=== PATIENT | male | born 1995 | race Two or more races ===

== ENCOUNTER 2022-11-14 11:50 | Outpatient (CLI) | payer OTHER | END 2022-11-14 11:51 | disposition critical access hospital (66) | LOC: EMS 11:50 | DX: R07.9 Chest pain, unspecified (principal); R53.83 Other fatigue | CPT/HCPCS: A0425; A0429 ==

== ENCOUNTER 2022-11-14 12:16 | Emergency (ER) | payer OTHER ==
--- NOTE | 2022-11-14 12:53 | ED Physician Documentation ---
PD HPI CHEST PAIN - Stated complaint Stated Complaint: CHEST DISCOMFORT - Chief complaint Chief Complaint: Cardiac - History obtained from History obtained from: Patient - History of Present Illness Pain level max: 3 Pain level now: 0 Quality: Aching, Sharp Location: Left chest - Additional information Additional information: 27-year-old male presents the emergency department stating that he awoke with left-sided chest pain this morning. He states he feels more tired than usual. He states the pain is in a 1 finger area on the left chest wall. He states that it hurt when it was pushed on earlier today. No fevers. No chills. No cough. No history of acute coronary syndrome. He states that he has a history of "sinus arrhythmia". He states he also has a history of Mobitz type I. No change with exertion, inspiration, cough. No fevers. No recent illnesses. No trauma. He states the pain is gone right now. Described as sharp. Review of Systems Constitutional: denies: Fever, Chills GI: denies: Vomiting, Diarrhea : denies: Dysuria, Frequency, Hesitancy Skin: denies: Rash Musculoskeletal: denies: Neck pain, Back pain PD PAST MEDICAL HISTORY - Past Medical History Past Medical History: No - Past Surgical History Past Surgical History: No - Allergies Allergies/Adverse Reactions: Allergies Allergy/AdvReac Type Severity Reaction Status Date / Time No Known Drug Allergies Allergy Verified 11/14/22 12:37 - Living Situation Living Situation: reports: With family Living Arrangement: reports: At home - Social History Does the pt smoke?: No Does the pt have substance abuse?: No - Family History Family history: reports: Non contributory PD ED PE NORMAL - Vitals Vital signs reviewed: Yes - General General: Alert and oriented X 3, No acute distress - HEENT HEENT: PERRL, Moist mucous membranes - Neck Neck: Supple, no meningeal sign - Cardiac Cardiac: RRR, No murmur, Strong equal pulses - Respiratory Respiratory: No respiratory distress, Clear bilaterally - Abdomen Abdomen: Soft, Non tender, Non distended - Derm Derm: Warm and dry - Extremities Extremities: No edema, No calf tenderness / cord - Neuro Neuro: Alert and oriented X 3 - Psych Psych: Normal mood, Normal affect - Free text exam Free text exam: Tender to palpation over the left anterior chest wall, costochondral junction approximately rib 9. No ecchymosis or crepitus Results - Vitals Vitals: Vital Signs - 24 hr 11/14/22 11/14/22 11/14/22 12:38 12:42 13:51 Temperature 36.5 C 36.5 C Heart Rate 64 64 66 Respiratory 12 12 14 Rate Blood Pressure 122/81 H 122/81 H 119/83 H O2 Saturation 100 100 100 Oxygen O2 Source Room air - EKG (time done) 1228 EKG releavant findings:: EKG personally interpreted by author of this note. Relevant findings are: Rate: Rate (enter#) (66) Rhythm: NSR [place]: Normal Intervals: Normal [place] QRS: Normal Ischemia: Normal ST segments - Labs Labs: Laboratory Tests 11/14/22 11/14/22 11/14/22 13:05 13:05 13:05 WBC 5.5 RBC 4.95 Hgb 14.3 Hct 42.6 MCV 86.1 MCH 28.9 MCHC 33.6 RDW 12.0 Plt Count 296 MPV 8.5 Neut # (Auto) 2.9 Lymph # (Auto) 1.9 [place] # (Auto) 0.5 Eos # (Auto) 0.1 Baso # (Auto) 0.0 Absolute Nucleated RBC 0.00 Nucleated RBC % 0.0 Sodium 140 Potassium 3.9 Chloride 104 Carbon Dioxide 28 Anion Gap 8.0 BUN 17 Creatinine 1.0 Estimated GFR (MDRD) 90 Glucose 92 Calcium 9.3 Total Bilirubin 0.4 AST 50 H ALT 85 H Alkaline Phosphatase 71 Troponin I High Sens 2.7 Total Protein 7.2 Albumin 4.4 Globulin 2.8 Albumin/Globulin Ratio 1.6 Lipase 44 - Rads (name of study) cxr Relevant Findings:: Final report received, See rad report PD Medical Decision Making - ED course Complexity details: reviewed results, re-evaluated patient, considered differential (No ST elevation SD, no aortic dissection, no PE, no tension pneumothorax, no aortic aneurysm), d/w patient Reviewed Lab Results: CBC does not show any acute abnormalities. Chemistry is normal except for a mild elevation of his liver function test. High sensitive troponin is negative. ED course: Patient with atypical chest pain. Reproduced with palpation. Normal sinus rhythm. No arrhythmias. No evidence of PE. No DVT. No risk factors. No recent travel or immobilization. No calf swelling or tenderness. No evidence of aortic dissection. Pain-free currently. We will have him follow-up with his doctor for further care. Patient counseled regarding signs and symptoms for which I believe and urgent re-evaluation would be necessary. Patient with good understanding of and agreement to plan and is comfortable going home at this t gordy This document was made in part using voice recognition software. While efforts are made to proofread this document, sound alike and grammatical errors may occur. Departure - Departure Disposition: 01 Home, Self Care Clinical Impression: Chest pain Qualifiers: Chest pain type: unspecified Qualified Code(s): R07.9 - Chest pain, unspecified Condition: Good Instructions: ED Chest Pain Atypical Unkn Cause Follow-Up: your,doctor in 1 week [Other] Comments: Please follow-up with your doctor for further care. There are no acute findings on your chest x-ray, EKG, troponin or other laboratory testing. There is no evidence of acute coronary syndrome or heart attack. Please return if you worsen. Discharge Date/Time: 11/14/22 13:55
[2022-11-14 13:09] LABS: BASOPHILS % (AUTO) 0.4 %; EOSINOPHILS # (AUTO) 0.1 10^3/uL (0.0-0.7); HCT - HEMATOCRIT 42.6 % (42.0-52.0); HGB - HEMOGLOBIN 14.3 g/dL (14.0-18.0); LYMPHOCYTES # (AUTO) 1.9 10^3/uL (1.5-3.5); LYMPHOCYTES % (AUTO) 34.3 %; MEAN CORPUSCULAR HEMOGLOBIN 28.9 pg (27.0-31.0); MEAN CORPUSCULAR HGB CONC 33.6 g/dL (32.0-36.0); MEAN CORPUSCULAR VOLUME 86.1 fL (80.0-94.0); MEAN PLATELET VOLUME 8.5 fL (7.4-11.4); MONOCYTES # (AUTO) 0.5 10^3/uL (0.0-1.0); MONOCYTES % (AUTO) 9.2 %; NEUTROPHILS # (AUTO) 2.9 10^3/uL (1.5-6.6); NEUTROPHILS % (AUTO) 53.7 %; PLT - PLATELET COUNT 296 10^3/uL (130-450); RED BLOOD COUNT 4.95 10^6/uL (4.70-6.10); WHITE BLOOD COUNT 5.5 x10^3/uL (4.8-10.8)
[2022-11-14 13:21] LABS: ALBUMIN 4.4 g/dL (3.2-5.5); ALBUMIN/GLOBULIN RATIO 1.6 (1.0-2.2); BILIRUBIN,TOTAL 0.4 mg/dL (0.2-1.0); CALCIUM 9.3 mg/dL (8.5-10.3); POTASSIUM 3.9 mmol/L (3.5-5.0); TOTAL PROTEIN 7.2 g/dL (6.7-8.2)
--- NOTE | 2022-11-14 13:30 | XRAY Report ---
PROCEDURE: Chest 1 View X-Ray INDICATIONS: Chest pain TECHNIQUE: One view of the chest was acquired. COMPARISON: None. FINDINGS: Surgical changes and devices: None. Lungs and pleura: No pleural effusions or pneumothorax. Lungs are clear. Mediastinum: Mediastinal contours appear normal. Heart size is normal. Bones and chest wall: No suspicious bony lesions. Overlying soft tissues appear unremarkable. IMPRESSION: No acute cardiopulmonary pathology. Reviewed by: Wil Ling MD on 11/14/2022 1:28 PM PDT Approved by: Wil Ling MD on 11/14/2022 1:28 PM PDT Station ID: [id number]
[2022-11-14 13:52] VITALS: BP 119/83
== END 2022-11-14 13:55 | disposition home or self-care (01) ==
LOC: ED 12:16
DX: R07.89 Other chest pain (principal)
CPT/HCPCS: 36415; 80053; 83690; 84484; 85025; 93005; 99283; 99284